=== PATIENT | female | born 1970 | race Caucasian/White ===

== ENCOUNTER → 2021-09-25 07:41 | Outpatient (CLI) | payer OTHER, SELFPAY ==
[2021-09-25 08:46] LABS: Absolute Lymphocyte Count 1.38 X10^3/uL (0.83-4.51); Absolute Neutrophil Count 2.9 X10^3/uL (2.0-7.7); Basophil# 0.07 X10^3/uL; Basophil% 1.4 % (0-1); Eosinophil# 0.16 X10^3/uL; Eosinophils% 3.3 % (0-5); Hematocrit 41.1 % (37-47); Hemoglobin 14.1 g/dL (12.0-15.0); Lymphocyte # 1.38 X10^3/ul (0.83-4.51); Lymphocyte % 28.5 % (19-41); Mean Corp Hgb Conc 34.3 g/dL (32-36); Mean Corpuscular Hgb 30.8 pg (27.0-32.0); Mean Corpuscular Volume 89.7 fL (81-99); Mean Platelet Vol. 10.2 fl (6.2-12.0); Monocyte# 0.36 X10^3/uL; Monocyte% 7.4 % (0-10); NRBC Flagged by Analyzer 0 % (0-5); Neutrophil # 2.87 X10^3/uL (2.7-7.7); Neutrophil % 59.2 % (47-70); Platelet Count 251 K/mm3 (150-450); RBC Distribution Width CV 13.9 % (11.6-14.6); RBC Distribution Width SD 45.5 fl (35.1-43.9); Red Blood Count 4.58 M/mm3 (4.2-5.4); White Blood Count 4.9 K/mm3 (4.4-11.0)
[2021-09-25 09:06] LABS: Hemoglobin A1c 5.4 % (3.8-5.6)
[2021-09-25 09:19] LABS: Vitamin D,25 Hydroxy 50.8 ng/mL
[2021-09-25 09:30] LABS: ALB/GLOB Ratio 0.9 RATIO (0.9-2.4); AST(SGOT) 18 U/L (15-37); Alanine Aminotransfer ALT/SGPT 19 U/L (13-56); Albumin, Serum 3.6 g/dL (3.2-5.0); Alkaline Phosphatase 49 U/L (45-117); Anion Gap 3 (5-15); BUN 11 mg/dL (7-18); Calcium,Total 8.6 mg/dL (8.5-10.1); Chloride 106 mmol/L (98-107); Cholesterol 165 mg/dL (200); Creatinine, Serum 0.69 mg/dL (0.55-1.02); EST Glomerular Filtration Rate 96 mL/min (>60); Est Glom Filt Rate - Afr Amer 117 mL/min (>60); Globulin 3.8 g/dL (2.2-4.2); Glucose 91 mg/dL (74-106); High Density Lipoprotein 55 mg/dL; Potassium 4.2 mmol/L (3.5-5.1); Protein, Total 7.4 g/dL (6.4-8.2); Sodium Level 137 mmol/L (136-145); Thyroid Stim Hormone (TSH) 2.52 uIU/mL (0.358-3.74); Triglycerides 75 mg/dL; Very Low Density Lipoprotein 15 mg/dL (5-40)
== END ==
PROVIDERS: PCP Internal Medicine; Referring Provider Internal Medicine; Visit Provider Internal Medicine
DX: Z00.00 Encounter for general adult medical examination without abnormal findings (principal); E55.9 Vitamin D deficiency, unspecified; Z13.220 Encounter for screening for lipoid disorders
CPT/HCPCS: 36415; 80053; 80061; 82306; 83036; 84443; 85025

== ENCOUNTER 2021-10-08 12:38 | Inpatient (IN) | payer OTHER, SELFPAY ==
[2021-10-08] VITALS (13 sets, daily range): BP systolic 94–119; BP diastolic 55–75; PULSE 89–114; RESP 16–18; TEMP 36.7–37.8; O2SAT 93–100; BMI 20.5; BMI 20.9
--- NOTE | 2021-10-08 12:51 | EDS_ITS ---
HPI HPI - GI History of Present Illness Chief Complaint: Abd Pain Informant: patient Narrative Narrative: 50-year-old female presents to the emergency department with abdominal pain and vomiting. Patient states that symptoms began during the middle the night and have been persistent. She feels bloated. She denies any diarrhea or constipation. No fevers. No bad food exposure or bad water. No prior abdominal surgeries PFSH PFSH Medical History no medical history no medical history Home Medications NK 10/08/21 [History Last Taken Unknown] Allergy/AdvReac Type Severity Reaction Status Date / Time latex Allergy Mild Rash Verified 10/08/21 12:40 Penicillins Allergy Mild unknown Verified 10/08/21 12:40 Family History Other Breast cancer Diabetes Heart disease Hypertension Parkinsons Surgical History History of mandibular surgery Social History Smoking Status: Never smoker alcohol intake: never substance use type: does not use ROS ROS ED Constitutional Constitutional ED: Denies chills, fever(s) or weight loss Eyes Eyes: Denies change in vision or diplopia ENT ENT ED: Denies ear pain, rhinorrhea or sore throat Cardiovascular Cardiovascular: Denies chest pain, orthopnea, palpitations or racing heartbeat Respiratory/Chest Respiratory/Chest: Denies cough, dyspnea or orthopnea Gastrointestinal Gastrointestinal: Reports abdominal pain, nausea and vomiting; Denies diarrhea Genitourinary Genitourinary ED: Denies dysuria, hematuria or urinary frequency Musculoskeletal Musculoskeletal: Denies arthralgias or myalgias Integumentary Denies abscess or rash Neurologic Neurologic: Denies headache(s) or weakness Psychiatric Psychiatric: Denies anxiety, depression, suicidal ideation or suicidal thoughts Endocrine Endocrinology: Denies polydipsia, polyphagia or polyuria Allergic/Immunologic Allergic/Immunologic ED: Denies mouth swelling, tongue swelling or urticaria EXAM Physical Exam Const Vital Signs: 10/08/21 12:39 10/08/21 14:53 10/08/21 15:46 Temperature 98.5 F 100.0 F H Temperature Source Temporal Oral Pulse Rate 90 104 H 108 H Respiratory Rate 18 16 16 Blood Pressure 112/75 119/75 107/71 Blood Pressure Mean 87 89 83 Pulse Ox 99 100 94 Oxygen Delivery Method Room Air Room Air Room Air 10/08/21 16:05 Temperature Temperature Source Pulse Rate 110 H Respiratory Rate 16 Blood Pressure 111/71 Blood Pressure Mean 84 Pulse Ox 97 Oxygen Delivery Method Room Air Positive well nourished and well developed General Appearance ED: well developed HEENT Reports normocephalic, head/scalp atraumatic and moist mucous membranes normocephalic and atraumatic Eyes PERRL and EOMs intact bilaterally Neck no lymphadenopathy, supple and no JVD Resp normal respiratory effort and clear to auscultation bilaterally Cardio regular rate, regular rhythm and no murmurs GI normal to inspection, nondistended, normoactive bowel sounds Inspection: abdominal distention Auscultation: hypoactive bowel sounds Palpation: tender; Negative for guarding or rebound tenderness present Back/Spine no CVA tenderness and normal ROM Lumbar Spine / Lower Back: Negative for lumbar spinal tenderness Extremity normal to inspection and full ROM General Extremety ED: Negative for edema General Extremity: Negative for edema Neuro oriented x3 and CN's II-XII intact bilaterally Sensorium / Orientation: alert Motor Exam: strength 5/5 throughout Psych mental status grossly normal Mood & Affect: Negative for depressed or tearful Skin no rashes or lesions noted and no wounds Rashes: no rashes MDM MDM MDM Narrative Medical decision making narrative: White count elevated 12.4. Urinalysis negative. CMP glucose of 121. Lactic acid of 1.2. CT of the abdomen pelvis was obtained with oral and IV contrast. Unfortunately the patient did throw up some of the IV contrast prior to being scanned. Please see the radiologist review of the CT. The case was discussed with on-call surgeon Dr. Stevens. Patient received Cipro and Flagyl. She did develop a fever 102 because that she is going to the operating room I gave Toradol IV. Patient has remained n.p.o. Lab Data Attestation: I reviewed the patient's lab results. Labs: Laboratory Results - last 24 hr 10/08/21 10/08/21 10/08/21 12:55 12:55 14:08 WBC 12.4 H RBC 4.52 Hgb 14.0 Hct 40.5 MCV 89.6 MCH 31.0 MCHC 34.6 RDW Std Deviation 44.7 H RDW Coeff of Charo 13.8 Plt Count 213 MPV 9.6 Immature Gran % (Auto) 0.300 Neut % (Auto) 90.6 H Lymph % (Auto) 4.5 L [place] % (Auto) 4.3 Eos % (Auto) 0.1 Baso % (Auto) 0.2 Absolute Neuts (auto) 11.2 H Absolute Lymphs (auto) 0.56 L Nucleated RBC % 0 Differential Comment SCANNED Platelet Estimate ADEQUATE RBC Morphology NORM C+C Sodium 139 Potassium 3.3 L Chloride 107 Carbon Dioxide 27.0 Anion Gap 5 BUN 7 Creatinine 0.68 Estim Creat Clear Calc 89.11 Est GFR (MDRD) Af Amer 118 Est GFR (MDRD) Non-Af 97 BUN/Creatinine Ratio 10.3 Glucose 121 H Lactic Acid Calcium 8.3 L Total Bilirubin 0.70 AST 14 L ALT 18 Alkaline Phosphatase 53 Total Protein 7.5 Albumin 3.7 Globulin 3.8 Albumin/Globulin Ratio 1.0 Lipase 74 Urine Color Yellow Urine Clarity Sl. Cloudy Urine pH 6.0 Ur Specific [place] 1.020 Urine Protein Negative Urine Glucose (UA) Normal Urine Ketones 50 H Urine Occult Blood 10 H Urine Nitrite Negative Urine Bilirubin Negative Urine Urobilinogen Normal Ur Leukocyte Esterase Negative Urine RBC 0-5 SEEN Urine WBC 0 SEEN Ur Squamous Epith Cells 0-5 SEEN Urine Bacteria 0 SEEN Urine Mucus 0 SEEN Urine Test 10/08/21 10/08/21 14:08 15:25 WBC RBC Hgb Hct MCV MCH MCHC RDW Std Deviation RDW Coeff of Charo Plt Count MPV Immature Gran % (Auto) Neut % (Auto) Lymph % (Auto) Murray % (Auto) Eos % (Auto) Baso % (Auto) Absolute Neuts (auto) Absolute Lymphs (auto) Nucleated RBC % Differential Comment Platelet Estimate RBC Morphology Sodium Potassium Chloride Carbon Dioxide Anion Gap BUN Creatinine Estim Creat Clear Calc Est GFR (MDRD) Af Amer Est GFR (MDRD) Non-Af BUN/Creatinine Ratio Glucose Lactic Acid 1.2 Calcium Total Bilirubin AST ALT Alkaline Phosphatase Total Protein Albumin Globulin Albumin/Globulin Ratio Lipase Urine Color Urine Clarity Urine pH Ur Specific [place] Urine Protein Urine Glucose (UA) Urine Ketones Urine Occult Blood Urine Nitrite Urine Bilirubin Urine Urobilinogen Ur Leukocyte Esterase Urine RBC Urine WBC Ur Squamous Epith Cells Urine Bacteria Urine Mucus Urine Test Negative Radiography Diagnostic Testing: Clinical Impression(s) from Imaging Studies Abdomen/Pelvis CT 10/08/21 12:54 IMPRESSION: 1. Mild ascites in the lower abdomen/upper pelvis. Trace pneumoperitoneum. Hollow viscus perforation should be considered. Surgical consultation recommended. 2. 3.7 x 5.2 cm heterogeneous (soft tissue and air) collection in the left abdomen is contiguous with a loop of small bowel (image 46 series 601, image 66 series 2). No contained contrast. Small amount of mesentery edema is seen adjacent to the outpouching/collection. Could represent a small bowel diverticulum (such as Meckel''s diverticulum). Given adjacent edema, possibility of Meckel''s diverticulitis should be considered. A contained perforation is considered less likely. 3. Enlarged uterus with multiple heterogeneous masses measuring up to 10.2 cm. 4. Bowel malrotation colon predominantly in the right side and small bowel predominantly in the left side. No evidence of bowel obstruction. Electronically Signed: James Nye MD ([place]) at 15:01 EST , Service support , Discharge Plan Triage Chief Complaint: Abd Pain ED Provider: Shahriar Ambrose Dx/Rx/DC Orders Clinical Impression: Perforated viscus, Abdominal pain, acute Prescriptions: No Action NK RF: 0 Primary Care Provider: Elli Hess Referrals: Elli Hess MD [Primary Care Provider] - Disposition Disposition: Acute Care Hospital [facility]
--- NOTE | 2021-10-08 12:54 | CT_ITS ---
EXAM: CT ABDOMEN AND PELVIS WITH INTRAVENOUS CONTRAST CLINICAL INDICATION: Abdominal pain since 3:00 AM, nausea TECHNIQUE: Helically acquired images were obtained of the abdomen and pelvis with intravenous contrast. This CT exam was performed using one or more of the following dose reduction techniques: automated exposure control, adjustment of the mA and/or kV according to patient size, and/or use of iterative reconstruction technique. This report was created using [employer] report generation technology. Oral contrast was administered. Coronal and sagittal reformatted images were created and reviewed. CONTRAST: 100 mL ISOVUE-300 COMPARISON: None. FINDINGS: LOWER THORAX: Unremarkable. Lung bases are clear. No cardiomegaly. No significant pericardial effusion. ABDOMEN: LIVER: Unremarkable. Homogeneous. No focal mass. GALLBLADDER AND BILE DUCTS: Unremarkable. No calcified gallstones. No gallbladder distention or wall edema. No intra- or extrahepatic biliary ductal dilation. PANCREAS: Unremarkable. No focal cystic or solid mass. SPLEEN: Unremarkable. Normal size without focal cystic or solid mass. ADRENALS: Unremarkable. No nodules. KIDNEYS AND URETERS: Simple left renal cyst. No required imaging follow-up needed given high likelihood of benign nature. Normal renal size and position. No hydronephrosis. STOMACH AND BOWEL: There is a small hiatal hernia. PELVIS: APPENDIX: No evidence of acute appendicitis. BLADDER: Unremarkable. REPRODUCTIVE: Enlarged uterus with multiple heterogeneous masses measuring up to 10.2 cm. ABDOMEN and PELVIS: INTRAPERITONEAL SPACE: Mild ascites in the lower abdomen/upper pelvis. Adjacent to colon in the central abdomen on image 51 of series 2, there is a small collection of extraluminal air along the medial border. Additional extraluminal air seen on images 56-57 of series 2. No large collection of pneumoperitoneum seen. BONES/JOINTS: Unremarkable. No suspicious lytic or blastic abnormality. SOFT TISSUES: 3.7 x 5.2 cm heterogeneous (soft tissue and air) collection in the left abdomen is contiguous with a loop of small bowel (image 46 series 601, image 66 series 2). No contained contrast. Small amount of mesentery edema is seen adjacent to the outpouching/collection. Small fluid collection along the right anterolateral abdominal wall measuring 1.2 x 1.5 cm is contiguous with the abdominal wall fascia, possible tiny hernia. VASCULATURE: Moderate aortic retention throughout the colon.The colon is almost entirely position on the right side of the abdomen with small bowel on the left side of the abdomen. Abdominal aorta is non-dilated. LYMPH NODES: Unremarkable. No enlarged lymph nodes. CT/Abdomen/Pelvis WITH Contrast IMPRESSION: 1. Mild ascites in the lower abdomen/upper pelvis. Trace pneumoperitoneum. Hollow viscus perforation should be considered. Surgical consultation recommended. 2. 3.7 x 5.2 cm heterogeneous (soft tissue and air) collection in the left abdomen is contiguous with a loop of small bowel (image 46 series 601, image 66 series 2). No contained contrast. Small amount of mesentery edema is seen adjacent to the outpouching/collection. Could represent a small bowel diverticulum (such as Meckel''s diverticulum). Given adjacent edema, possibility of Meckel''s diverticulitis should be considered. A contained perforation is considered less likely. 3. Enlarged uterus with multiple heterogeneous masses measuring up to 10.2 cm. 4. Bowel malrotation colon predominantly in the right side and small bowel predominantly in the left side. No evidence of bowel obstruction. Electronically Signed: James Nye MD (Brooks) at 15:01 EST , Service support ,
[2021-10-08] MEDS: Morphine 4 MG/ML Syringe IV ×2 (12:59→15:34)
[2021-10-08] MEDS: Ondansetron 4 MG/2 ML Vial IV ×2 (12:59→15:34)
[2021-10-08] MEDS: 0.9% Normal Saline 1,000 ML 1000 ML IV (13:01)
[2021-10-08 13:03] LABS: Absolute Lymphocyte Count 0.56 X10^3/uL (0.83-4.51); Absolute Neutrophil Count 11.2 X10^3/uL (2.0-7.7); Basophil# 0.03 X10^3/uL; Basophil% 0.2 % (0-1); Eosinophil# 0.01 X10^3/uL; Eosinophils% 0.1 % (0-5); Hematocrit 40.5 % (37-47); Lymphocyte # 0.56 X10^3/ul (0.83-4.51); Lymphocyte % 4.5 % (19-41); Mean Corp Hgb Conc 34.6 g/dL (32-36); Mean Corpuscular Volume 89.6 fL (81-99); Mean Platelet Vol. 9.6 fl (6.2-12.0); Monocyte# 0.53 X10^3/uL; Monocyte% 4.3 % (0-10); NRBC Flagged by Analyzer 0 % (0-5); Neutrophil # 11.24 X10^3/uL (2.7-7.7); Neutrophil % 90.6 % (47-70); POSITIVE DIFFERENTIAL YES; Platelet Count 213 K/mm3 (150-450); RBC Distribution Width CV 13.8 % (11.6-14.6); RBC Distribution Width SD 44.7 fl (35.1-43.9); Red Blood Count 4.52 M/mm3 (4.2-5.4); White Blood Count 12.4 K/mm3 (4.4-11.0)
[2021-10-08 13:12] LABS: Differential Indicated SCAN CRITERIA MET
[2021-10-08 13:20] LABS: AST(SGOT) 14 U/L (15-37); Alanine Aminotransfer ALT/SGPT 18 U/L (13-56); Albumin, Serum 3.7 g/dL (3.2-5.0); Alkaline Phosphatase 53 U/L (45-117); Anion Gap 5 (5-15); BUN 7 mg/dL (7-18); BUN/Creat Ratio 10.3 RATIO (10-20); Calcium,Total 8.3 mg/dL (8.5-10.1); Chloride 107 mmol/L (98-107); Creatinine, Serum 0.68 mg/dL (0.55-1.02); EST Glomerular Filtration Rate 97 mL/min (>60); Est Glom Filt Rate - Afr Amer 118 mL/min (>60); Estimated Creatinine Clearance 89.11 ml/min; Globulin 3.8 g/dL (2.2-4.2); Glucose 121 mg/dL (74-106); Lipase 74 U/L (73-393); Potassium 3.3 mmol/L (3.5-5.1); Protein, Total 7.5 g/dL (6.4-8.2); Sodium Level 139 mmol/L (136-145)
[2021-10-08 13:33] LABS: Differential Comment SCANNED; Platelet Estimate ADEQUATE (ADEQ); Red Cell Morphology NORM C+C NORMAL (NORM C&C)
[2021-10-08 14:15] LABS: Bacteria 0 SEEN /hpf (None Seen); Mucous, Urine 0 SEEN /hpf (<or=2+); White Blood Cells 0 SEEN /hpf (0-5)
[2021-10-08 14:24] LABS: Internal QC Validated? YES +Cl - CLEAR BKGD; Pregnancy, Urine Negative Negative
[2021-10-08 14:27] LABS: Color, Urine Yellow (Yellow); Glucose, Dipstick Normal (Normal); Ketone-Dipstick 50 mg/dl (Negative); Leukocyte Esterase-Dipstick Negative /ul (Negative); Nitrite-Dipstick Negative (Negative); Occult Blood-Urine 10 /ul (Negative); Protein-Dipstick Negative (Negative); Urine Bilirubin Dipstick Negative (Negative); Urine Clarity Sl. Cloudy (Clear); Urine Urobilinogen Normal (Normal)
[2021-10-08 14:35] LABS: Red Blood Cells-Urine 0-5 SEEN /hpf (0-5); Squamous Epithelial Cells - UA 0-5 SEEN /hpf (5-10)
[2021-10-08] MEDS: Ciprofloxacin 400 MG/200 ML BAG 200 MG IV (15:34)
[2021-10-08 15:59] LABS: Lactic Acid 1.2 mmol/L (0.4-1.9)
--- NOTE | 2021-10-08 16:14 | PCM.HP.STD ---
HPI - General HPI Narrative HORACE FAITH, is a 50 F who presents to [facility] with an approximately 12-hour history of acute?onset abdominal pain. This pain has been associated with nausea and vomiting. Vomitus is described as simply food stuff that was taken the day before. States this pain is more severe than she has ever experienced and was reduced to crawling around her kitchen floor by late morning. There was then she decided to seek medical evaluation. ED work-up is notable for relatively stable vitals with some mild tachycardia. She has a mild leukocytosis of 12.4 with CBC and left shift. CT imaging was performed with p.o. and IV contrast showing malrotation, small foci of free air medial to the colon and a 3.7 x 5.2 cm fluid collection in the left lower quadrant that appeared to be contiguous with the small bowel in that area. Considering the differential diagnosis the patient is asked if she has had any recent weight loss. To this she states she has had approximately 5 to 10 pounds of unintentional weight loss but states that she has been very active with house projects at home and her also reported a weight loss recently. She denies any recent experience of flushing. Patient is quite healthy and takes no medications on a regular basis. She does have a history of mandibular surgery. She also confirms that she was told several years ago that she has a fibroid uterus but had declined surgery because it was minimally symptomatic to her. When questioned about any bloody bowel movements, she confirms that her recent bowel movements have been unremarkable but approximately 10 years ago experience significant bright red blood per rectum for a period of a couple days that remitted spontaneously. No medical attention was ever sought for this issue. [facility] Medical History no medical history Home Medications NK 10/08/21 [History Last Taken Unknown] Allergy/AdvReac Type Severity Reaction Status Date / Time latex Allergy Mild Rash Verified 10/08/21 12:40 Penicillins Allergy Mild unknown Verified 10/08/21 12:40 Family History Other Breast cancer Diabetes Heart disease Hypertension Parkinsons Surgical History History of mandibular surgery Social History Smoking Status: Never smoker alcohol intake: never substance use type: does not use Vital Signs Vital Signs Vital Signs: 10/08/21 12:39 10/08/21 14:53 10/08/21 15:46 Temperature 98.5 F 100.0 F H Temperature Source Temporal Oral Pulse Rate 90 104 H 108 H Respiratory Rate 18 16 16 Blood Pressure 112/75 119/75 107/71 Blood Pressure Mean 87 89 83 Pulse Ox 99 100 94 Oxygen Delivery Method Room Air Room Air Room Air 10/08/21 16:05 Temperature Temperature Source Pulse Rate 110 H Respiratory Rate 16 Blood Pressure 111/71 Blood Pressure Mean 84 Pulse Ox 97 Oxygen Delivery Method Room Air Weight Weight: 123 lb Body Mass Index (BMI) 20.5 Physical Exam Const alert and oriented x3 Constitutional Narrative: Mild distress from pain General Appearance: cooperative Resp normal respiratory effort GI GI Narrative: Slender, nondistended. Tender to palpation x4 quadrants with lower quadrants more severe and left greater than right for intensity. There is no bulge or tenderness in the area of the patient's right inguinal hernia. Results Lab / Micro Data Result Diagrams: 10/08/21 12:55 10/08/21 12:55 Labs: Laboratory Results - last 24 hr 10/08/21 12:55: WBC 12.4 H, RBC 4.52, Hgb 14.0, Hct 40.5, MCV 89.6, MCH 31.0, MCHC 34.6, RDW Std Deviation 44.7 H, RDW Coeff of Charo 13.8, Plt Count 213, MPV 9.6, Immature Gran % (Auto) 0.300, Neut % (Auto) 90.6 H, Lymph % (Auto) 4.5 L, [place] % (Auto) 4.3, Eos % (Auto) 0.1, Baso % (Auto) 0.2, Absolute Neuts (auto) 11.2 H, Absolute Lymphs (auto) 0.56 L, Nucleated RBC % 0, Differential Comment SCANNED, Platelet Estimate ADEQUATE, RBC Morphology NORM C+C 10/08/21 12:55: Sodium 139, Potassium 3.3 L, Chloride 107, Carbon Dioxide 27.0, Anion Gap 5, BUN 7, Creatinine 0.68, Estim Creat Clear Calc 89.11, Est GFR (MDRD) Af Amer 118, Est GFR (MDRD) Non-Af 97, BUN/Creatinine Ratio 10.3, Glucose 121 H, Calcium 8.3 L, Total Bilirubin 0.70, AST 14 L, ALT 18, Alkaline Phosphatase 53, Total Protein 7.5, Albumin 3.7, Globulin 3.8, Albumin/Globulin Ratio 1.0, Lipase 74 10/08/21 14:08: Urine Color Yellow, Urine Clarity Sl. Cloudy, Urine pH 6.0, Ur Specific [place] 1.020, Urine Protein Negative, Urine Glucose (UA) Normal, Urine Ketones 50 H, Urine Occult Blood 10 H, Urine Nitrite Negative, Urine Bilirubin Negative, Urine Urobilinogen Normal, Ur Leukocyte Esterase Negative, Urine RBC 0-5 SEEN, Urine WBC 0 SEEN, Ur Squamous Epith Cells 0-5 SEEN, Urine Bacteria 0 SEEN, Urine Mucus 0 SEEN 10/08/21 14:08: Urine Test Negative 10/08/21 15:25: Lactic Acid 1.2 Radiology Impression Abdomen/Pelvis CT 10/08/21 12:54 IMPRESSION: 1. Mild ascites in the lower abdomen/upper pelvis. Trace pneumoperitoneum. Hollow viscus perforation should be considered. Surgical consultation recommended. 2. 3.7 x 5.2 cm heterogeneous (soft tissue and air) collection in the left abdomen is contiguous with a loop of small bowel (image 46 series 601, image 66 series 2). No contained contrast. Small amount of mesentery edema is seen adjacent to the outpouching/collection. Could represent a small bowel diverticulum (such as Meckel''s diverticulum). Given adjacent edema, possibility of Meckel''s diverticulitis should be considered. A contained perforation is considered less likely. 3. Enlarged uterus with multiple heterogeneous masses measuring up to 10.2 cm. 4. Bowel malrotation colon predominantly in the right side and small bowel predominantly in the left side. No evidence of bowel obstruction. Electronically Signed: James Nye MD ([place]) at 15:01 EST , Service support , Assessment & Plan Assessment/Plan (1) Free intraperitoneal air: PLAN: Is a 50-year-old female with minimal past medical history who presents with 12-hour history of acute onset abdominal pain is associated with nausea and vomiting. CT imaging shows evidence of malrotation as well as some intermittent foci of free intraperitoneal air and a 3.7 x 5.2 cm fluid collection contiguous with the small bowel and concerning for possible small bowel diverticulum. Given the patient's free air, peritoneal ascites, and possible small bowel diverticulum, I have recommended we proceed emergently for diagnostic laparoscopy versus laparotomy with probable small bowel resection and reanastomosis. I shared with patient and her that this recommendation is based on the desire to minimize her risk for peritoneal contamination with a perforation event and better define the CT findings in the left lower quadrant. If this represents a Meckel's diverticulum, I would plan to resect this portion of bowel and reanastomose the remaining bowel. Additionally we discussed performing an incidental appendectomy if the opportunity presents itself given the patient's abnormal intra-abdominal anatomy. We discussed postoperative recovery expectations briefly and the patient and her give their consent to proceed as recommended. She is currently administered ciprofloxacin and Flagyl by emergency medicine. A Covid test is pending. Charges/Coding Visit Charges Inpatient E&M: 19146 Init Hosp L2
[2021-10-08] MEDS: Ketorolac 30 MG/ML Syringe IV (16:19)
[2021-10-08] MEDS: metroNIDAZOLE 500 MG/100 ML BAG 100 MG IV (16:56)
--- NOTE | 2021-10-08 17:00 | COL_PTH ---
PATIENT: HORACE FAITH LOC: MS3 U#:[id number] AGE/SX: 50/F ROOM: [facility] RE10/08/[address]: Dr. Flaquito Stevens MD : 1970 BED: 1 DIS: 10/11/2021 SPEC #: [id number] RECD: 10/08/21 19:50 STATUS: ELEAZAR KOEHLER #: [id number] LORA: 10/08/21 17:[address]: Flaquito Stevens DEPT: SURGICAL PATHOLOGY RECD BY: Flori Davila ENTERED: 10/09/21 08:43 SP TYPE: COLON OTHR DR: Dr. Elli Hess MD Tissues: Colon, NOS Procedures: Surgery Specimen Level V HEADER OPERATION: Small bowel resection PRE-OP DIAGNOSIS: Free intraperitoneal air POST-OP DIAGNOSIS: Perforated viscous small bowel diverticulum TISSUE SUBMITTED: Small bowel MICROSCOPIC DIAGNOSIS Small bowel, segmental resection: Focal area of defect, clinically perforation. A wide mouth diverticulum with extensive ulceration and transmural acute inflammation. One mesenteric lymph node with reactive changes. Mesenteric tissue with acute inflammation. SJ 10/14/21 COMMENT This case was reviewed and diagnosis discussed with Dr. Stevens on 10/16/2021. MICROSCOPIC DESCRIPTION Slides are reviewed. GROSS DESCRIPTION Received is one container labeled with the patient name and designated small bowel. The specimen consists of a segment of small bowel with attached mesenteric tissue measuring 16 cm in length. Both resection margins are stapled. A defect is noted 3.5 cm from one resection margin measuring 3.0 cm in greatest dimension. A wide mouth diverticulum filled with fecal material is also noted measuring 3.0 cm in greatest dimension. Mucosa of the diverticulum is shows extensive ulceration. Lumen also show small amount of fecal material. No additional mucosal lesion is noted. Sections of mesenteric tissue reveal one lymph node measuring 0.6 cm in greatest dimension. [employer]er sections are submitted as follows: 1- resection margins, 2 - small bowel, adjacent to the defect, 3 to 5 ? diverticulum, 6 ? random sections, small bowel, 7 one bisected lymph node and mesenteric tissue. /SJ:patel 10/09/21 TC:5 CPT: 67735
[2021-10-08] MEDS: Lactated Ringers 1,000 ML 100 ML IV ×2 (19:00→19:30)
[2021-10-08] MEDS: Bupivacaine Mpf 0.5% 30 ML VIAL (19:30)
--- NOTE | 2021-10-08 19:35 | OP.PCM_ITS ---
Problems Associated Problem List Diagnoses (1) Perforated viscus: (2) Free intraperitoneal air: Report of Operation Date of Procedure: 10/08/21 Pre-Operative Diagnosis: 1. Acute abdomen with free intraperitoneal air and peritonitis 2. Radiographic evidence of malrotation and possible small bowel diverticulum Post-Operative Diagnosis: 1. Perforated viscus with purulent ascites 2. Severely inflamed small bowel diverticulum 3. Malrotation Surgery/Procedure Performed:: 1. Diagnostic laparoscopy 2. Laparoscopic small bowel resection with primary stapled anastomosis Description of Surgical Findings:: ?Turbid ascites ?Severely enlarged uterus ?Small bowel diverticulum with fibrinous exudate and severely inflamed small bowel mesentery adjacent ?Remainder of small bowel/small bowel mesentery grossly normal ?Grossly normal-appearing colon ?Mildly distended gallbladder Surgeon: Flaquito Stevens customer service officer: Luis Garduno Type of Anesthesia: General/Supplemental Anesthesiologist: Dorcas Hannon Drains: NA Estimated Blood Loss (mL): 25 Description of Procedure: Patient was brought to the operating room from the preoperative holding area after obtaining written consent and meeting with anesthesia. She was then positioned supine on the operating room table and general endotracheal anesthetic was administered. A Ruiz catheter was placed to decompress the bladder and an orogastric tube was placed to decompress the stomach. Then the abdomen was prepped and draped in the usual sterile fashion. During this preparatory phase the preoperative antibiotics were completely administered. A formal timeout was conducted to confirm patient and the procedure. Procedure was begun by making a supraumbilical incision and using a Bear entry a 12 mm port was placed. Pneumoperitoneum was established to 15 mmHg and the abdomen was inspected. There was turbid ascites and a severely enlarged uterus immediately visible. There appeared to be no inadvertent injury to the viscera below. 2 additional trocars were placed in the right mid abdomen and suprapubic positions. These were both 5 mm ports that were placed under direct laparoscopic vision. The patient was then placed into Trendelenburg with the right side down to facilitate visualization of the left lower quadrant. Almost immediately were able to visualize small bowel in the left lower quadrant with a large mesenteric diverticulum. A perforation was not grossly evident but there was severe edema of the small bowel mesentery adjacent to this area and strands of fibrinous exudate. A sample of the turbid ascites was taken through a Luken's tube with the suction cash management associate. I then took the opportunity to run the small bowel in proximal and distal directions. There was a considerable length of proximal small bowel that appeared grossly normal. Distally the length was much shorter (estimated at approximately 20 to 30 cm) but this, too, appeared to be normal grossly. A locking grasper was then placed on the small bowel adjacent to the small bowel diverticulum and there was excellent mobility to the midline. To facilitate resection and reanastomosis, I elected to open our supraumbilical incision in a curvilinear direction about the umbilicus and placed a medium size wound protector. The inflamed small bowel/diverticulum was delivered through this opening. Identified grossly normal small bowel both proximally and distally from this inflammatory focus and designated these as large transection points. Then, the small bowel mesentery was divided with use of the LigaSure maintaining hemostasis. Were also careful to take an extra margin around the small bowel diverticulum with this division. The bowel, itself, was divided with serial firings of the 55 mm CARLOS stapler. A [id number], functional end-to-end stapled anastomosis was then made between these 2 segments of small bowel with a third firing of the CARLOS stapler. The common defect was closed transversely with a firing of the [place] stapler. This produced a widely?patent anastomosis and there was mild oozing from the staple line. A crotch stitch was placed with 3-0 silk. Then the staple line was imbricated with a running 3-0 silk. The small mesenteric window was closed with a running 3-0 Vicryl. With our anastomosis completed it was returned to the peritoneum. The 12 mm port was then placed through our Edward wound protector and pneumoperitoneum was reestablished. I made a short attempt at identifying the patient's appendix but this was not readily apparent and we were experiencing significant leak through our wound protector set up. Therefore I aborted this attempt and transition to open irrigation of the peritoneal cavity with 2 L warmed, sterile saline. This irrigation was suctioned free of the peritoneum and closure was begun. Closure of the largest wound was performed with 2X#1 PDS sutures in a running bidirectional orientation at the level of the fascia. The subcutaneous space was closed down with intermittent deep dermal sutures using 3-0 Vicryl. A running subcuticular stitch was performed with 4-0 Monocryl. The 5 mm port sites were also closed with 4-0 Monocryl in a subcuticular fashion. A total of 20 mL half percent bupivacaine were infiltrated about these port sites prior to their creation and then postoperatively as well to assist with the patient's postoperative pain control. Steri-Strips were placed on each wound along with OpSite dressings. Patient was then awoken from general anesthetic without event and transferred to PACU for ongoing monitoring. Complications None Admit VTE Documentation VTE Present on Admission: Yes VTE Mechan Device Prophylaxis: SCD's VTE Pharm Prophylaxis ordered?: No Procedures Digestive 40xxx-49xxx: 44173 Removal of small intestine
[2021-10-08 20:27] LABS: Absolute Lymphocyte Count 0.38 X10^3/uL (0.83-4.51); Basophil# 0.02 X10^3/uL; Basophil% 0.1 % (0-1); Hematocrit 36.6 % (37-47); Hemoglobin 12.3 g/dL (12.0-15.0); Lymphocyte # 0.38 X10^3/ul (0.83-4.51); Lymphocyte % 2.2 % (19-41); Mean Corp Hgb Conc 33.6 g/dL (32-36); Mean Corpuscular Hgb 30.5 pg (27.0-32.0); Mean Corpuscular Volume 90.8 fL (81-99); Monocyte# 0.48 X10^3/uL; Monocyte% 2.8 % (0-10); NRBC Flagged by Analyzer 0 % (0-5); Neutrophil # 16.04 X10^3/uL (2.7-7.7); Neutrophil % 94.4 % (47-70); POSITIVE DIFFERENTIAL YES; Platelet Count 172 K/mm3 (150-450); RBC Distribution Width CV 13.8 % (11.6-14.6); RBC Distribution Width SD 46.1 fl (35.1-43.9); Red Blood Count 4.03 M/mm3 (4.2-5.4)
[2021-10-08 20:29] LABS: Differential Indicated SCAN CRITERIA MET
--- NOTE | 2021-10-08 20:49 | PCS.PANDOC ---
PANDEMIC DOCUMENTATION INITIATED: Date: 10/08/21 Time: 2044
[2021-10-08 20:56] LABS: Differential Comment SCANNED
[2021-10-08] MEDS: 0.9% Normal Saline 1,000 ML 125 ML IV (22:05)
[2021-10-08] MEDS: Heparin Injection (Vial) 5,000 UNIT/ML VIAL 5000 UNIT SC (22:45)
[2021-10-09 00:49] VITALS: BP 95/60; PULSE 81; RESP 16; TEMP 36.7; O2SAT 95
[2021-10-09] MEDS: 0.9% Normal Saline 1,000 ML 125 ML IV ×2 (05:22→18:38)
[2021-10-09] MEDS: metroNIDAZOLE 500 MG/100 ML BAG 100 MG IV ×3 (05:23→22:07)
[2021-10-09 05:24] VITALS: BP 98/61; PULSE 76; RESP 16; TEMP 36.8; O2SAT 98
[2021-10-09] MEDS: Heparin Injection (Vial) 5,000 UNIT/ML VIAL 5000 UNIT SC ×3 (05:26→22:07)
[2021-10-09 07:21] VITALS: BP 97/64; PULSE 77; RESP 16; TEMP 36.8; O2SAT 97
[2021-10-09 07:25] LABS: Absolute Lymphocyte Count 0.41 X10^3/uL (0.83-4.51); Absolute Neutrophil Count 14.3 X10^3/uL (2.0-7.7); Basophil# 0.02 X10^3/uL; Basophil% 0.1 % (0-1); Hematocrit 33.2 % (37-47); Hemoglobin 11.2 g/dL (12.0-15.0); Lymphocyte # 0.41 X10^3/ul (0.83-4.51); Lymphocyte % 2.7 % (19-41); Mean Corp Hgb Conc 33.7 g/dL (32-36); Mean Corpuscular Hgb 30.1 pg (27.0-32.0); Mean Corpuscular Volume 89.2 fL (81-99); Mean Platelet Vol. 10.4 fl (6.2-12.0); Monocyte# 0.61 X10^3/uL; NRBC Flagged by Analyzer 0 % (0-5); Neutrophil # 14.25 X10^3/uL (2.7-7.7); Neutrophil % 92.6 % (47-70); POSITIVE DIFFERENTIAL YES; Platelet Count 172 K/mm3 (150-450); RBC Distribution Width CV 14.2 % (11.6-14.6); RBC Distribution Width SD 45.7 fl (35.1-43.9); Red Blood Count 3.72 M/mm3 (4.2-5.4); White Blood Count 15.4 K/mm3 (4.4-11.0)
[2021-10-09 07:27] LABS: Differential Indicated SCAN CRITERIA MET
[2021-10-09 07:50] LABS: Anion Gap 8 (5-15); BUN 9 mg/dL (7-18); BUN/Creat Ratio 15.4 RATIO (10-20); Calcium,Total 7.3 mg/dL (8.5-10.1); Chloride 109 mmol/L (98-107); Creatinine, Serum 0.58 mg/dL (0.55-1.02); EST Glomerular Filtration Rate 117 mL/min (>60); Est Glom Filt Rate - Afr Amer 141 mL/min (>60); Estimated Creatinine Clearance 106.74 ml/min; Glucose 143 mg/dL (74-106); Magnesium 1.7 mg/dL (1.6-2.6); Phosphorus 2.4 mg/dL (2.5-4.9); Potassium 3.4 mmol/L (3.5-5.1); Sodium Level 139 mmol/L (136-145)
[2021-10-09 08:49] LABS: Platelet Estimate ADEQUATE (ADEQ); Red Cell Morphology NORM C+C NORMAL (NORM C&C)
--- NOTE | 2021-10-09 10:30 | CASEMGMT ---
RN CLEM Face to Face with patient for initial transition planning/care coordination assessment. RN CM introduced self and role at [facility]. Patient sitting in chair, alert and oriented, at bedside. Patient willing to participate in assessment and is able to answer all questions appropriately. Care providers, pharmacy, and demographics verified. Patient wishes to discharge home, denies need for home health at this time. Patient states she has no further needs or concerns at this time. CM to follow for discharge planning needs that may arise. PCP: Pap[facility] Specialists: none Preferred Pharmacy: [facility] Insurance: [employer] Prescription Benefit: yes Living Will/HPOA: none LNOK: Living Arrangements: patient lives with in a raised ranch with 10 steps and railing to enter the home. Patient states she is independent and able to ambulate stairs. Transportation: self, DME/HHC: patient states she has raised toilet and grab bars at home. No previous HHC or SNF Disposition Plan: Patient to discharge home with family support and follow-up plans in place. Tatiana FORBES, RN, CM
[2021-10-09] MEDS: Ciprofloxacin 400 MG/200 ML BAG 200 MG IV ×2 (10:32→23:17)
--- NOTE | 2021-10-09 10:50 | PN.SURG_ITS ---
Subjective Subjective Patient was seen and examined during AM rounds. She states that she is feeling much better concerning her pain?particularly left lower quadrant, however she is experiencing some bloating discomfort. She denies any return of bowel function. She has not yet walked since surgery. Objective Data Objective Data Vital Signs: Vital Signs Temp Pulse Resp BP Pulse Ox 98.2 F 77 16 97/64 97 10/09/21 07:21 10/09/21 07:21 10/09/21 07:21 10/09/21 07:21 10/09/21 07:21 Oxygen Delivery Method Room Air Weight: 126 lb 1.671 oz Body Mass Index (BMI) 20.9 Intake & Output: Intake and Output for Last 24 Hours 10/07/21 10/08/21 10/09/21 23:59 23:59 23:59 Intake Total 2558.33 / 2558.33 1012.50 / 1012.50 Output Total 400 / 400 0 / 0 Balance 2158.33 / 2158.33 1012.50 / 1012.50 Lab / Micro Data Result Diagrams: 10/09/21 06:37 10/09/21 06:37 Labs: Laboratory Results - last 24 hr 10/08/21 12:55: WBC 12.4 H, RBC 4.52, Hgb 14.0, Hct 40.5, MCV 89.6, MCH 31.0, MCHC 34.6, RDW Std Deviation 44.7 H, RDW Coeff of Charo 13.8, Plt Count 213, MPV 9.6, Immature Gran % (Auto) 0.300, Neut % (Auto) 90.6 H, Lymph % (Auto) 4.5 L, [place] % (Auto) 4.3, Eos % (Auto) 0.1, Baso % (Auto) 0.2, Absolute Neuts (auto) 11.2 H, Absolute Lymphs (auto) 0.56 L, Nucleated RBC % 0, Differential Comment SCANNED, Platelet Estimate ADEQUATE, RBC Morphology NORM C+C 10/08/21 12:55: Sodium 139, Potassium 3.3 L, Chloride 107, Carbon Dioxide 27.0, Anion Gap 5, BUN 7, Creatinine 0.68, Estim Creat Clear Calc 89.11, Est GFR (MDRD) Af Amer 118, Est GFR (MDRD) Non-Af 97, BUN/Creatinine Ratio 10.3, Glucose 121 H, Calcium 8.3 L, Total Bilirubin 0.70, AST 14 L, ALT 18, Alkaline Phosphatase 53, Total Protein 7.5, Albumin 3.7, Globulin 3.8, Albumin/Globulin Ratio 1.0, Lipase 74 10/08/21 14:08: Urine Color Yellow, Urine Clarity Sl. Cloudy, Urine pH 6.0, Ur Specific [place] 1.020, Urine Protein Negative, Urine Glucose (UA) Normal, Urine Ketones 50 H, Urine Occult Blood 10 H, Urine Nitrite Negative, Urine Bilirubin Negative, Urine Urobilinogen Normal, Ur Leukocyte Esterase Negative, Urine RBC 0-5 SEEN, Urine WBC 0 SEEN, Ur Squamous Epith Cells 0-5 SEEN, Urine Bacteria 0 SEEN, Urine Mucus 0 SEEN 10/08/21 14:08: Urine Test Negative 10/08/21 15:25: Lactic Acid 1.2 10/08/21 20:20: WBC 17.0 H, RBC 4.03 L, Hgb 12.3, Hct 36.6 L, MCV 90.8, MCH 30.5, MCHC 33.6, RDW Std Deviation 46.1 H, RDW Coeff of Charo 13.8, Plt Count 172, MPV 10.0, Immature Gran % (Auto) 0.500, Neut % (Auto) 94.4 H, Lymph % (Auto) 2.2 L, [place] % (Auto) 2.8, Eos % (Auto) 0.0, Baso % (Auto) 0.1, Absolute Neuts (auto) 16.0 H, Absolute Lymphs (auto) 0.38 L, Nucleated RBC % 0, Differential Comment SCANNED 10/09/21 06:37: WBC 15.4 H, RBC 3.72 L, Hgb 11.2 L, Hct 33.2 L, MCV 89.2, MCH 30.1, MCHC 33.7, RDW Std Deviation 45.7 H, RDW Coeff of Charo 14.2, Plt Count 172, MPV 10.4, Immature Gran % (Auto) 0.600, Neut % (Auto) 92.6 H, Lymph % (Auto) 2.7 L, [place] % (Auto) 4.0, Eos % (Auto) 0.0, Baso % (Auto) 0.1, Absolute Neuts (auto) 14.3 H, Absolute Lymphs (auto) 0.41 L, Nucleated RBC % 0, Platelet Estimate ADEQUATE, RBC Morphology NORM C+C 10/09/21 06:37: Sodium 139, Potassium 3.4 L, Chloride 109 H, Carbon Dioxide 22.0, Anion Gap 8, BUN 9, Creatinine 0.58, Estim Creat Clear Calc 106.74, Est GFR (MDRD) Af Amer 141, Est GFR (MDRD) Non-Af 117, BUN/Creatinine Ratio 15.4, Glucose 143 H, Calcium 7.3 L, Phosphorus 2.4 L, Magnesium 1.7 Micro: Microbiology 10/08/21 17:47 Aspirate - Abdominal Gram Stain - Final 10/08/21 16:19 Nasal Secretion SARS-CoV-2 Antigen (Rapid) - Final Radiography Diagnostic Testing: Radiology Impression Abdomen/Pelvis CT 10/08/21 12:54 IMPRESSION: 1. Mild ascites in the lower abdomen/upper pelvis. Trace pneumoperitoneum. Hollow viscus perforation should be considered. Surgical consultation recommended. 2. 3.7 x 5.2 cm heterogeneous (soft tissue and air) collection in the left abdomen is contiguous with a loop of small bowel (image 46 series 601, image 66 series 2). No contained contrast. Small amount of mesentery edema is seen adjacent to the outpouching/collection. Could represent a small bowel diverticulum (such as Meckel''s diverticulum). Given adjacent edema, possibility of Meckel''s diverticulitis should be considered. A contained perforation is considered less likely. 3. Enlarged uterus with multiple heterogeneous masses measuring up to 10.2 cm. 4. Bowel malrotation colon predominantly in the right side and small bowel predominantly in the left side. No evidence of bowel obstruction. Electronically Signed: James Nye MD ([place]) at 15:01 EST , Service support , Physical Exam Const no apparent distress Resp normal respiratory effort GI GI Narrative: Very minimally distended, moderate serosanguineous drainage to midline incision site dressing. 2 remaining dressings are clean dry and intact. Appropriately tender to palpation about the midline incision. Assessment & Plan Assessment/Plan (1) S/P small bowel resection: PLAN: Patient is postoperative day 1 from laparoscopic small bowel resection with primary, stapled anastomosis. She reports improvement in her presenting pain complaints and has some expected abdominal wall discomfort. She is also dealing with some bloating which would be consistent with an expected postoperative ileus given the degree of contamination found intraoperatively. We will therefore continue n.p.o. status. Neuro: As needed Dilaudid, add Toradol x2 days Pulm/CV: No current issues FEN/GI: Chemistries today indicate hypokalemia hypophosphatemia, will replace. N.p.o. Heme/ID: Mild postoperative anemia, postoperative leukocytosis now improving. Patient on empiric coverage with Cipro and Flagyl with pending peritoneal cultures Endo: No current issues Proph: SCDs and subcutaneous heparin every 8 hours Dispo: Continue inpatient stay Charges/Coding Visit Charges Inpatient E&M: 09244 Subs Hosp L2
[2021-10-09 15:05] VITALS: BP 105/68; PULSE 88; RESP 16; TEMP 37.2; O2SAT 98
[2021-10-09] MEDS: Ketorolac 30 MG/ML Syringe IV ×2 (15:16→22:06)
[2021-10-09 22:01] VITALS: BP 111/72; PULSE 75; RESP 18; TEMP 37.4; O2SAT 98
[2021-10-10 03:59] VITALS: BP 97/61; PULSE 74; RESP 18; TEMP 36.6; O2SAT 94
[2021-10-10] MEDS: 0.9% Normal Saline 1,000 ML 125 ML IV (04:07)
[2021-10-10] MEDS: Ketorolac 30 MG/ML Syringe IV ×3 (06:09→21:28)
[2021-10-10] MEDS: Heparin Injection (Vial) 5,000 UNIT/ML VIAL 5000 UNIT SC (06:09)
[2021-10-10] MEDS: metroNIDAZOLE 500 MG/100 ML BAG 100 MG IV ×3 (06:09→21:25)
[2021-10-10 06:57] LABS: Absolute Lymphocyte Count 1.03 X10^3/uL (0.83-4.51); Absolute Neutrophil Count 6.2 X10^3/uL (2.0-7.7); Basophil# 0.02 X10^3/uL; Basophil% 0.3 % (0-1); Eosinophil# 0.03 X10^3/uL; Eosinophils% 0.4 % (0-5); Hematocrit 29.7 % (37-47); Hemoglobin 10.2 g/dL (12.0-15.0); Lymphocyte # 1.03 X10^3/ul (0.83-4.51); Lymphocyte % 13.5 % (19-41); Mean Corp Hgb Conc 34.3 g/dL (32-36); Mean Corpuscular Hgb 31.4 pg (27.0-32.0); Mean Corpuscular Volume 91.4 fL (81-99); Mean Platelet Vol. 10.7 fl (6.2-12.0); Monocyte# 0.32 X10^3/uL; Monocyte% 4.2 % (0-10); NRBC Flagged by Analyzer 0 % (0-5); Neutrophil # 6.22 X10^3/uL (2.7-7.7); Neutrophil % 81.3 % (47-70); Platelet Count 147 K/mm3 (150-450); RBC Distribution Width CV 14.8 % (11.6-14.6); RBC Distribution Width SD 50.3 fl (35.1-43.9); Red Blood Count 3.25 M/mm3 (4.2-5.4); White Blood Count 7.6 K/mm3 (4.4-11.0)
[2021-10-10 07:13] LABS: Anion Gap 5 (5-15); BUN 12 mg/dL (7-18); BUN/Creat Ratio 22.9 RATIO (10-20); Calcium,Total 7.5 mg/dL (8.5-10.1); Chloride 114 mmol/L (98-107); Creatinine, Serum 0.52 mg/dL (0.55-1.02); EST Glomerular Filtration Rate 132 mL/min (>60); Est Glom Filt Rate - Afr Amer 159 mL/min (>60); Estimated Creatinine Clearance 119.05 ml/min; Glucose 93 mg/dL (74-106); Phosphorus 1.4 mg/dL (2.5-4.9); Potassium 3.4 mmol/L (3.5-5.1); Sodium Level 142 mmol/L (136-145)
[2021-10-10 08:22] VITALS: BP 111/75; PULSE 70; RESP 14; TEMP 36.7; O2SAT 94
--- NOTE | 2021-10-10 09:27 | PCM.PN.SRG ---
Subjective Subjective Patient seen and examined during AM rounds. She is sitting out of bed to a chair. She states that she is eager to be discharged. She states that her pain is minimal?rated at a 2 out of 10 and has required minimal pain medication. She confirms nursing report that she has been passing flatus. Added to this, she has her appetite back. Objective Data Objective Data Vital Signs: Vital Signs Temp Pulse Resp BP Pulse Ox 98.0 F 70 14 111/75 94 10/10/21 08:22 10/10/21 08:22 10/10/21 08:22 10/10/21 08:22 10/10/21 08:22 Oxygen Delivery Method Room Air Weight: 126 lb 1.671 oz Body Mass Index (BMI) 20.9 Intake & Output: Intake and Output for Last 24 Hours 10/08/21 10/09/21 10/10/21 23:59 23:59 23:59 Intake Total 2558.33 / 2558.33 2665.42 / 2665.42 1300 / 1300 Output Total 400 / 400 500 / 500 Balance 2158.33 / 2158.33 2165.42 / 2165.42 1300 / 1300 Lab / Micro Data Result Diagrams: 10/10/21 06:25 10/10/21 06:25 Labs: Laboratory Results - last 24 hr 10/10/21 06:25: WBC 7.6, RBC 3.25 L, Hgb 10.2 L, Hct 29.7 L, MCV 91.4, MCH 31.4, MCHC 34.3, RDW Std Deviation 50.3 H, RDW Coeff of Charo 14.8 H, Plt Count 147 L, MPV 10.7, Immature Gran % (Auto) 0.300, Neut % (Auto) 81.3 H, Lymph % (Auto) 13.5 L, [place] % (Auto) 4.2, Eos % (Auto) 0.4, Baso % (Auto) 0.3, Absolute Neuts (auto) 6.2, Absolute Lymphs (auto) 1.03, Nucleated RBC % 0 10/10/21 06:25: Sodium 142, Potassium 3.4 L, Chloride 114 H, Carbon Dioxide 23.0, Anion Gap 5, BUN 12, Creatinine 0.52 L, Estim Creat Clear Calc 119.05, Est GFR (MDRD) Af Amer 159, Est GFR (MDRD) Non-Af 132, BUN/Creatinine Ratio 22.9 H, Glucose 93, Calcium 7.5 L, Phosphorus 1.4 L Micro: Microbiology 10/08/21 17:47 Aspirate - Abdominal Gram Stain - Final 10/08/21 17:47 Aspirate - Abdominal Wound Culture - Preliminary No growth-Final to follow 10/08/21 16:19 Nasal Secretion SARS-CoV-2 Antigen (Rapid) - Final Physical Exam Const no apparent distress Resp normal respiratory effort GI GI Narrative: Nondistended, moderate saturation of midline incision, but once outer bandages are removed incisions remain well approximated without ongoing drainage. Patient's abdomen is minimally tender with palpation just about incision sites. Assessment & Plan Assessment/Plan (1) S/P small bowel resection: PLAN: Patient is postoperative day 2 from laparoscopic small bowel resection with primary, stapled anastomosis. She reports continued improvement in her postoperative pain. She has experienced return of bowel function and is expressing an appetite. We will therefore plan to advance to a diet and transition to oral pain medications. Neuro: As needed Dilaudid, Toradol 1/2 days scheduled, add as needed acetaminophen and oxycodone Pulm/CV: No current issues FEN/GI: Chemistries today again indicate hypokalemia hypophosphatemia, will replace. Advance to clear liquid diet without carbonation Heme/ID: Mild postoperative anemia slightly progressed with labs we will trend CBC and hold subcu heparin, postoperative leukocytosis now resolved. Patient on empiric coverage with Cipro and Flagyl with pending peritoneal cultures?Gram stain showed no growth Endo: No current issues Proph: SCDs and subcutaneous heparin now held Dispo: Continue inpatient stay Charges/Coding Visit Charges Inpatient E&M: 40018 Subs Hosp L2
[2021-10-10] MEDS: Ciprofloxacin 400 MG/200 ML BAG 200 MG IV ×2 (10:18→22:45)
[2021-10-10 13:08] VITALS: BP 106/75; PULSE 62; RESP 14; TEMP 36.4; O2SAT 99
[2021-10-10] MEDS: 0.9% Saline Lock 10 ML Syringe IV ×3 (14:48→23:12)
[2021-10-10 20:00] VITALS: BP 116/77; PULSE 68; RESP 16; TEMP 36.8; O2SAT 96
[2021-10-10] MEDS: Ondansetron 4 MG/2 ML Vial IV (23:12)
[2021-10-11 03:00] VITALS: BP 122/77; PULSE 69; RESP 16; TEMP 36.8; O2SAT 96
[2021-10-11] MEDS: 0.9% Normal Saline 1,000 ML 25 ML IV (05:54)
[2021-10-11] MEDS: Ketorolac 30 MG/ML Syringe IV (05:55)
[2021-10-11] MEDS: 0.9% Saline Lock 10 ML Syringe IV ×2 (05:57→06:50)
[2021-10-11] MEDS: metroNIDAZOLE 500 MG/100 ML BAG 100 MG IV (05:59)
[2021-10-11 06:04] LABS: Absolute Lymphocyte Count 0.98 X10^3/uL (0.83-4.51); Absolute Neutrophil Count 3.2 X10^3/uL (2.0-7.7); Basophil# 0.02 X10^3/uL; Basophil% 0.4 % (0-1); Eosinophil# 0.08 X10^3/uL; Eosinophils% 1.8 % (0-5); Hematocrit 32.2 % (37-47); Lymphocyte # 0.98 X10^3/ul (0.83-4.51); Lymphocyte % 21.6 % (19-41); Mean Corp Hgb Conc 34.2 g/dL (32-36); Mean Corpuscular Hgb 30.7 pg (27.0-32.0); Mean Corpuscular Volume 89.9 fL (81-99); Mean Platelet Vol. 10.4 fl (6.2-12.0); Monocyte# 0.28 X10^3/uL; Monocyte% 6.2 % (0-10); NRBC Flagged by Analyzer 0 % (0-5); Neutrophil # 3.17 X10^3/uL (2.7-7.7); Neutrophil % 69.8 % (47-70); Platelet Count 157 K/mm3 (150-450); RBC Distribution Width CV 14.6 % (11.6-14.6); RBC Distribution Width SD 48.4 fl (35.1-43.9); Red Blood Count 3.58 M/mm3 (4.2-5.4); White Blood Count 4.5 K/mm3 (4.4-11.0)
[2021-10-11] MEDS: Ondansetron 4 MG/2 ML Vial IV (06:50)
[2021-10-11 08:02] VITALS: BP 112/71; PULSE 63; RESP 16; TEMP 37.1; O2SAT 98
[2021-10-11] MEDS: Potassium Chloride Oral Tablet 20 MEQ 40 MEQ PO (08:05)
[2021-10-11] MEDS: Ciprofloxacin 400 MG/200 ML BAG 200 MG IV (10:21)
--- NOTE | 2021-10-11 11:00 | PCM.PN.SRG ---
Subjective Subjective Patient nauseated on the Flagyl. Objective Data Objective Data Dressings are dry incision looks clean no signs of infection Vital Signs: Vital Signs Temp Pulse Resp BP Pulse Ox 98.8 F 63 16 112/71 98 10/11/21 08:02 10/11/21 08:02 10/11/21 08:02 10/11/21 08:02 10/11/21 08:02 Oxygen Delivery Method Room Air Weight: 126 lb 1.671 oz Body Mass Index (BMI) 20.9 Intake & Output: Intake and Output for Last 24 Hours 10/09/21 10/10/21 10/11/21 23:59 23:59 23:59 Intake Total 2665.42 / 2665.42 3062.00 / 3062.00 262.5 / 262.5 Output Total 500 / 500 1000 / 1150 150 / 150 Balance 2165.42 / 2165.42 2062.00 / 1912.00 112.5 / 112.5 Lab / Micro Data Result Diagrams: 10/11/21 05:13 10/10/21 06:25 Labs: Laboratory Results - last 24 hr 10/11/21 05:13: WBC 4.5, RBC 3.58 L, Hgb 11.0 L, Hct 32.2 L, MCV 89.9, MCH 30.7, MCHC 34.2, RDW Std Deviation 48.4 H, RDW Coeff of Charo 14.6, Plt Count 157, MPV 10.4, Immature Gran % (Auto) 0.200, Neut % (Auto) 69.8, Lymph % (Auto) 21.6, [place] % (Auto) 6.2, Eos % (Auto) 1.8, Baso % (Auto) 0.4, Absolute Neuts (auto) 3.2, Absolute Lymphs (auto) 0.98, Nucleated RBC % 0 Micro: Microbiology 10/08/21 15:25 Blood Culture (Wb) - Anticubital Right Blood Culture - Preliminary No growth in 48 hours. 10/08/21 15:28 Blood Culture (Wb) - Anticubital Left Blood Culture - Preliminary No growth in 48 hours. 10/08/21 17:47 Aspirate - Abdominal Gram Stain - Final 10/08/21 17:47 Aspirate - Abdominal Wound Culture - Final No growth aerobically. 10/08/21 17:47 Aspirate - Abdominal Anaerobic Culture - Preliminary No growth in 48 hours. 10/08/21 16:19 Nasal Secretion SARS-CoV-2 Antigen (Rapid) - Final Assessment & Plan Assessment/Plan (1) S/P small bowel resection: PLAN: We will discharge patient home today. Since there was no growth from the fluid we will stop her antibiotics today.
[2021-10-11 11:03] VITALS: BP 117/80; PULSE 57; RESP 16; TEMP 36.7; O2SAT 100
--- NOTE | 2021-10-11 11:03 | EX.PCM.DISCH ---
Discharge Instructions Procedure General Surgery Diet Discharge Diet: Light diet - advance as tolerated (If you have questions about your diet instructions, please talk to your doctor.) Activity Discharge Activity: May Not Drive (for 1 week or while taking narcotic pain medicine.) May shower in (days): 1 Lifting Restrictions: 10 pounds Dressing / Incision Call your doctor if your incision/area has: Continuous Slow Oozing, Sudden Increased Bleeding, Increased Pain/ Swelling, Increased Redness and Foul Smelling Discharge Call your doctor if you observe: Fever of 101 or Higher Suture Line Care: Avoid Pulling/Pushing and Avoid Pinching/Bending Additional Dressing/Incision Instructions:: Change or remove dressing in 4 days. Leave steri-strips in place for 1 week. Follow Up Care Please Follow Up With: Wendy Ch PA-C When: Call office to schedule an appointment to be seen in about 10 days. Test Results: Test results from this visit will be discussed in further detail at your follow-up appointment, if applicable. Discharge Plan Admission Admit Date/Time: 10/08/21 19:35 Attending Provider: Flaquito Stevens Primary Care Provider: Elli Hess Discharge Orders/Prescriptions Prescriptions: New oxycodone-acetaminophen [Percocet] 5-325 mg tablet 1 tab PO Q4H PRN (Reason: pain) 5 Days Qty: 20 RF: 0 Referrals / Follow Up: Elli Hess MD [Primary Care Provider] - Flaquito Stevens MD [STAFF PHYSICIAN] -
== END 2021-10-11 13:29 | disposition home or self-care (01) | DRG 330 ==
LOC: ED 16:15 → SDC 16:28 → MS3 20:14 → SDC 10-09 09:29 → MS3 10-09 09:29
PROVIDERS: Physician Assistant; Admitting Provider Surgery; Emergency Provider Emergency Medicine; PCP Internal Medicine; Visit Provider Surgery
PROC: 0DB84ZZ Excision of Small Intestine, Percutaneous Endoscopic Approach (ICD-10-PCS; CPT 44202; principal; 2021-10-08 16:40)
DX: K57.00 Diverticulitis of small intestine with perforation and abscess without bleeding (principal); Q43.3 Congenital malformations of intestinal fixation; R18.8 Other ascites; R10.0 Acute abdomen; N85.2 Hypertrophy of uterus; K82.8 Other specified diseases of gallbladder; E87.6 Hypokalemia; E83.39 Other disorders of phosphorus metabolism; D72.829 Elevated white blood cell count, unspecified
CPT/HCPCS: 36415; 74177; 80048; 80053; 81001; 81025; 83605; 83690; 83735; 84100; 85025; 87015; 87040; 87070; 87075; 87102; 87116; 87205; 87206; 87426; 88307; 99285; J7030; J7050; J7120; Q9967; A4216; J0330; J0744; J2405